=== PATIENT | male | born 1950 | race Caucasian/White ===

== ENCOUNTER 2017-11-19 17:32 | Emergency (ER) | payer BC ==
[~2017-11-19] VITALS: Ht 182.9 cm; Wt 99.0 kg
[2017-11-19 18:03] VITALS: BP 118/79
[2017-11-19 18:43] LABS: HEMATOCRIT 42.1 % (38.0-50.0); HEMOGLOBIN 14.3 G/DL (12.5-16.6); MCH 30.8 PG (29.0-34.0); MCV 90.7 FL (86-99); PLATELET COUNT 196 K/uL (156-360); RBC DIS.WIDTH-CV 12.7 % (11.8-14.6); RBC DIS.WIDTH-SD 42.1 % (39-53); RED BLOOD COUNT 4.64 M/uL (4.00-5.50); WHITE BLOOD COUNT 6.2 K/uL (4.1-10.2)
[2017-11-19 18:54] LABS: CHLORIDE 102 mEq/L (99-109); POTASSIUM 3.8 mEq/L (3.7-5.4); SODIUM 134 mEq/L (136-147)
[2017-11-19 18:55] LABS: GLUCOSE 105 mg/dL (70-99)
[2017-11-19 18:59] LABS: CREATININE 0.9 mg/dL (0.6-1.3); GFR ESTIMATE (CALCULATED) > 59 mL/min/ (58.99-99999)
[2017-11-19 19:00] LABS: UREA NITROGEN (BUN) 18 mg/dL (9-23)
== END 2017-11-19 22:13 | disposition left against medical advice (07) ==
LOC: EME 17:32
DX: J18.9 Pneumonia, unspecified organism (principal); Z53.21 Procedure and treatment not carried out due to patient leaving prior to being seen by health care provider
CPT/HCPCS: 71046; 80048; 85027; 93005